=== PATIENT | male | born 1945 | race Caucasian/White ===

== ENCOUNTER 2021-04-21 13:50 | Observation (INO) ==
[~2021-04-21 13:50] MED LIST: Buffered Lidocaine 1% SYRIN 1 ml INTRADERM ONE; Famotidine IV 10 MG/ML 2 ml VIAL (20 mg) IV ONE; Lactated Ringers 1000 ml BAG 1,000 ML IV SCH
[2021-04-21] MEDS ORDERED: Bupivacaine 0.5% SDV PF 30ML VIAL ONE (14:14)
[2021-04-21] MEDS ORDERED: Lidocaine 1% w EPI 1:200,000 SDV 30 ML VIAL ONE (14:14)
[2021-04-21] MEDS ORDERED: ceFAZolin VIAL VIAL ONE ×2 (14:16→20:13)
[2021-04-21] MEDS ORDERED: Famotidine IV 10 MG/ML 2 ml VIAL (20 mg) ONE (14:27)
[2021-04-21] MEDS ORDERED: ceFAZolin 2 GM in NS PREMIX 2 GM/100 ML BAG IVPB ONE (14:27)
[2021-04-21] MEDS ORDERED: Midazolam 2 mg/2 ml VIAL 1 mg/ml 2 ml VIAL (2 mg) ONE (15:31)
[2021-04-21] MEDS ORDERED: Dexmedetomidine 200 mcg/2 ml 2 ml VIAL (200 mcg) ONE (15:31)
[2021-04-21] MEDS ORDERED: ROPIVACAINE 5 MG/ML 30 ML BTL (0.5%) ONE (15:31)
[2021-04-21] MEDS ORDERED: Lidocaine 2% PF 5 ML VIAL ONE ×2 (15:31→16:08)
[2021-04-21] MEDS ORDERED: Propofol 10 MG/ML 20 ML BTL ONE (16:08)
[2021-04-21] MEDS ORDERED: Succinylcholine 200 mg VIAL 20 mg/ml 10 ml VIAL (200 mg) ONE (16:08)
[2021-04-21] MEDS ORDERED: fentaNYL 100 mcg/2 ml 50 MCG/ML VIAL ONE ×3 (16:09→18:17)
[2021-04-21] MEDS ORDERED: Bupivacaine 0.25% EPI 200,000 30 ML SDV ONE (16:14)
[2021-04-21] MEDS ORDERED: Bupivacaine 0.25% SDV PF 10 ML VIAL INJ ONE (16:14)
[2021-04-21] MEDS ORDERED: Rocuronium 50 mg VIAL 10 mg/ml 5 ml VIAL (50 mg) ONE ×4 (16:14→21:18)
[2021-04-21] MEDS ORDERED: EPHEDrine (Pressors) 50 MG/ML VIAL ONE ×2 (16:49→19:24)
[2021-04-21] MEDS ORDERED: Dexamethasone IV 4 MG/ML VIAL 1 ml VIAL ONE (16:49)
[2021-04-21] MEDS ORDERED: Acetaminophen IV 1 GM/100ML 100 ML IV ONE (22:01)
[2021-04-21] MEDS ORDERED: Ondansetron 4 mg VIAL 2 MG/ML 2 ml VIAL IV PRN (22:41)
[2021-04-21] MEDS ORDERED: diPHENhydraMINE 25 mg TAB PO PRN (22:41)
[2021-04-21] MEDS ORDERED: Magnesium Hydroxide LIQ 30 ML UDC PO PRN (22:41)
[2021-04-21] MEDS ORDERED: diPHENhydraMINE IV 50 MG/ML 1 ml VIAL (BENADRYL) IV PRN (22:41)
[2021-04-21] MEDS ORDERED: Ondansetron ODT 4 mg TAB 4 MG TAB PO PRN (22:41)
[2021-04-21] MEDS ORDERED: Lactulose 30 ml UDC PO PRN (22:41)
[2021-04-21] MEDS ORDERED: Naloxone 0.4 mg VIAL 0.4 mg/ml 1 ml VIAL IV PRN (22:46)
[2021-04-21] MEDS ORDERED: fentaNYL 100 mcg/2 ml 50 MCG/ML VIAL IV PRN (22:46)
[2021-04-21] MEDS ORDERED: DiMENhydriNATE IV 50 mg/ml 1 ml VIAL IV PUSH PRN (22:46)
[2021-04-21] MEDS ORDERED: Lactated Ringers 1000 ml BAG 1,000 ML IV SCH (23:00)
[2021-04-22] MEDS: ceFAZolin 1 GM ADVAN 1 GM in NS 0.9% 50 ML 50 ML IVPB SCH ×3 (01:50→16:17)
[2021-04-22 05:17] LABS: Hematocrit 30 % (42-52); Hemoglobin 10.3 g/dL (14.0-18.0); Mean Platelet Volume 7.9 fL (7.4-10.4); Platelet Count 266 10^3/uL (150-450)
[2021-04-22 05:34] LABS: Calcium 8.9 mg/dL (8.6-10.3); Potassium 4.4 mmol/L (3.5-5.0); eGFR CKD-EPI 80.4 (>60)
[2021-04-22] MEDS ORDERED: Magnesium Hydroxide LIQ 30 ML UDC PO SCH (09:00)
[2021-04-22] MEDS ORDERED: Vitamin THERAPEUTIC TAB PO SCH (09:00)
[2021-04-22] MEDS ORDERED: Enoxaparin 40 MG/0.4 ML SYR SUBCUT SCH (12:00)
[2021-04-22 16:23] VITALS: BP 131/70
[2021-04-22] MEDS ORDERED: Aspirin EC 81 mg TAB.EC (enteric coated) PO SCH (21:00)
== END 2021-04-22 16:40 | disposition home or self-care (01) ==
LOC: OR 13:50 → SSU 13:50
PROVIDERS: ADMIT Orthopaedic Surgery Sports Medicine; ATTEND Orthopaedic Surgery Sports Medicine

== ENCOUNTER 2023-11-04 04:40 | Inpatient (IN) ==
[2023-11-04 05:19] LABS: Hematocrit 36.8 % (38-53); Hemoglobin 12.3 g/dL (13.2-16.3); Mean Corpuscular Hemoglobin 28.5 pg (27-33); Mean Corpuscular Hgb Conc 33.5 g/dL (31-36); Mean Platelet Volume 8.8 fL (7.5-11.2); Platelet Count 174 10^3/uL (150-450); Red Blood Count 4.33 10^6/uL (4.06-5.63); Red Cell Distribution Width 14.8 % (12-17); White Blood Count 9.5 10^3/uL (3.6-10.2)
[2023-11-04 05:32] LABS: Glucose Confirmatory 463 mg/dL (70-100)
[2023-11-04 05:50] LABS: Venous Bicarbonate HCO3 15.6 mmol/L (24-28)
[2023-11-04] MEDS ORDERED: Dextrose 50% Syringe 50 ml 25 GM/50 ML SYRINGE IV PUSH PRN ×3 (05:50→19:14)
[2023-11-04 05:54] LABS: Urine Appearance Turbid; Urine Bacteria Absent /HPF (Absent); Urine Bilirubin Negative (Negative); Urine Blood 3+ (Negative); Urine Glucose 4+ (>=1000 mg/dL) (Negative); Urine Ketones 1+ (Negative); Urine Nitrite Negative (Negative); Urine Protein 1+ (>=30 mg/dL) (Negative); Urine Red Blood Cell 3+(>10/hpf) /HPF (0-Trace); Urine Squamous Epithelial Cell Present /HPF (Absent); Urine Urobilinogen Negative (Negative); Urine White Blood Cell Trace(0-5/hpf) /HPF (0-Trace); Urine pH 5.5 (5.0-8.0)
[2023-11-04] MEDS: NS 0.9% 1000 ml BAG 1,000 ML IV ONE (05:54)
[2023-11-04 06:08] LABS: ALT 44 U/L (7-52); Albumin/Globulin Ratio 1.2 (1-3); Alkaline Phosphatase 50 U/L (35-149); Anion Gap 12 mmol/L (2-16); Blood Urea Nitrogen 69 mg/dL (6-24); C Reactive Protein 368.66 mg/L (<8.01); CO2 Carbon Dioxide 17 mmol/L (22-32); Calcium 7.2 mg/dL (8.6-10.3); Chloride 110 mmol/L (101-111); Creatinine, Serum 2.35 mg/dL (0.67-1.17); Globulin 2.6 g/dL (2-4); Glucose 435 mg/dL (70-100); Sodium 139 mmol/L (135-145); Total Bilirubin 0.8 mg/dL (0.2-1.0); Total Protein 5.6 g/dL (6.4-8.9)
[2023-11-04] MEDS ORDERED: Vancomycin 1,000 MG in NS 0.9% 250 ml 250 ML IVPB ONE (06:12)
[2023-11-04] MEDS: Insulin Infusion 100unit/100mL 100 UNIT/100 ML BAG IV SCH ×2 (06:13→13:20)
[2023-11-04] MEDS: Piperacillin/Tazobac 3.375 BAG 3.375 GM/100 ML BAG IV ONE (06:37)
[2023-11-04 06:38] LABS: Glucose Confirmatory 464 mg/dL (70-100)
[2023-11-04 06:52] LABS: ABS Lymphocytes 0.2 10^3/uL (1.0-4.8); ABS Neutrophils 8.2 10^3/uL (1.5-7.6); ABS Nucleated RBC 0.02 10^3/ul; Eosinophil % 0.1 %; Lymphocyte % 2.2 %; Nucleated Red Blood Cells % 0.2 %/100WBC (0.0-0.8); RBC Morphology Normal (Normal)
[2023-11-04 07:43] LABS: Urine Color Yellow
[2023-11-04 08:23] LABS: Erythrocyte Sed Rate 59 mm/Hr (0-19)
[2023-11-04] MEDS: Vancomycin 1,500 MG in NS 0.9% 250 ml 250 ML IVPB ONE (09:17)
[2023-11-04] MEDS: NORMOSOL-R pH 7.4 1000 mL BAG 1,000 ML IV SCH (09:21)
[2023-11-04 09:43] LABS: Magnesium 2.4 mg/dL (1.9-2.7)
[2023-11-04] MEDS ORDERED: Bupivacaine 0.5% SDV PF 30ML VIAL ONE (10:27)
[2023-11-04] MEDS ORDERED: Propofol 10 MG/ML 20 ML BTL ONE ×3 (10:38→13:46)
[2023-11-04] MEDS ORDERED: Lidocaine 2% PF 5 ML VIAL ONE ×2 (10:38→13:46)
[2023-11-04] MEDS ORDERED: fentaNYL 100 mcg/2 ml 50 MCG/ML VIAL IV PRN (10:53)
[2023-11-04] MEDS ORDERED: Naloxone 0.4 mg VIAL 0.4 mg/ml 1 ml VIAL IV PRN (10:53)
[2023-11-04] MEDS ORDERED: Metoclopramide 5 MG/ML VIAL (10 mg) IV PRN (10:53)
[2023-11-04] MEDS ORDERED: Ondansetron 4 mg VIAL 2 MG/ML 2 ml VIAL IV PRN ×2 (10:53→13:06)
[2023-11-04] MEDS ORDERED: Insulin Infusion 100unit/100mL 100 UNIT/100 ML BAG IV SCH (11:00)
[2023-11-04] MEDS ORDERED: NS 0.45% 1000 ml BAG 1,000 ML IV SCH (11:00)
[2023-11-04] MEDS ORDERED: Ondansetron 4 mg VIAL 2 MG/ML 2 ml VIAL ONE (11:54)
[2023-11-04] MEDS ORDERED: Phenylephrine 40 mcg/mL 10mL (400mcg) SYRINGE ONE (11:56)
[2023-11-04] MEDS: metroNIDAZOLE IV 500 MG/100ML 500 MG/100 ML BAG IVPB ONE (12:26)
[2023-11-04] MEDS: Buffered Lidocaine 1% SYRIN 1 ml INTRADERM ONE (12:27)
[2023-11-04] MEDS: Lactated Ringers 1000 ml BAG 1,000 ML IV SCH (12:27)
[2023-11-04] MEDS: Acetaminophen IV 1 GM/100ML 1,000 MG/100 ML BAG IV ONE (12:27)
[2023-11-04] MEDS ORDERED: Morphine 2 MG/ML SYRINGE IV PRN (13:06)
[2023-11-04] MEDS ORDERED: Magnesium Hydroxide LIQ 30 ML UDC PO PRN (13:06)
[2023-11-04] MEDS ORDERED: Ondansetron ODT 4 mg TAB 4 MG TAB PO PRN (13:06)
[2023-11-04 13:17] LABS: Albumin 2.9 g/dL (3.2-5.2); Albumin/Globulin Ratio 0.9 (1-3); Calcium 7.6 mg/dL (8.6-10.3); Creatinine, Serum 2.59 mg/dL (0.67-1.17); Globulin 3.1 g/dL (2-4); Potassium 3.7 mmol/L (3.5-5.0); Total Bilirubin 0.7 mg/dL (0.2-1.0); eGFR CKD-EPI 24.9 (>60)
[2023-11-04] MEDS ORDERED: fentaNYL 100 mcg/2 ml 50 MCG/ML VIAL ONE (13:46)
[2023-11-04] MEDS ORDERED: Vancomycin per Pharmacy 1 EA NOTE FOLLOW UP SCH (14:00)
[2023-11-04] MEDS ORDERED: Zosyn per Pharmacy NOTE FOLLOW UP SCH (20:00)
[2023-11-04] MEDS: Clindamycin 600 MG/D5W BAG 600 MG/50 ML BAG IV SCH (21:45)
[2023-11-04] MEDS: ZOSYN 3.375 GM x ONE DOSE over 30 miuntes IV (21:52)
[2023-11-04] MEDS: Magnesium Hydroxide LIQ 30 ML UDC PO SCH (23:00)
[2023-11-05] MEDS: ZOSYN 3.375 GM Q12H per EXTENDED INFUSION IV SCH ×2 (03:56→04:00)
[2023-11-05 06:38] LABS: ABS Basophils 0.1 10^3/uL (0.0-0.1); ABS Lymphocytes 0.3 10^3/uL (1.0-4.8); ABS Monocytes 0.9 10^3/uL (0.0-1.1); ABS Neutrophils 8.5 10^3/uL (1.5-7.6); ABS Nucleated RBC 0.01 10^3/ul; Eosinophil % 0.4 %; Hematocrit 35.4 % (38-53); Hemoglobin 11.9 g/dL (13.2-16.3); Lymphocyte % 3.5 %; Mean Corpuscular Hemoglobin 28.4 pg (27-33); Mean Corpuscular Hgb Conc 33.6 g/dL (31-36); Mean Corpuscular Volume 84.5 fL (80-97); Mean Platelet Volume 8.9 fL (7.5-11.2); Nucleated Red Blood Cells % 0.1 %/100WBC (0.0-0.8); Platelet Count 156 10^3/uL (150-450); Red Blood Count 4.18 10^6/uL (4.06-5.63); Red Cell Distribution Width 14.8 % (12-17); White Blood Count 9.8 10^3/uL (3.6-10.2)
[2023-11-05 07:43] LABS: Calcium 8.4 mg/dL (8.6-10.3); Creatinine, Serum 2.36 mg/dL (0.67-1.17); Magnesium 2.5 mg/dL (1.9-2.7); eGFR CKD-EPI 27.8 (>60)
[2023-11-05] MEDS: Vancomycin Random Level NOTE FOLLOW UP ONE (07:49)
[2023-11-05] MEDS: Vitamin THERAPEUTIC TAB PO SCH (07:50)
[2023-11-05] MEDS ORDERED: Sulfur Hexaflouride MICROSPHR 25 MG VIAL IV PRN (09:38)
[2023-11-05] MEDS: Lactated Ringers 1000 ml BAG 1,000 ML IV SCH (11:26)
[2023-11-05] MEDS: Pantoprazole VIAL 40 MG VIAL IV SCH (11:29)
[2023-11-05] MEDS: Vancomycin 2,000 MG in NS 0.9% 500 ml BAG 500 ML IVPB ONE (13:45)
[2023-11-06 05:03] LABS: ABS Lymphocytes 0.4 10^3/uL (1.0-4.8); ABS Monocytes 0.5 10^3/uL (0.0-1.1); ABS Neutrophils 8.2 10^3/uL (1.5-7.6); Hematocrit 34.8 % (38-53); Lymphocyte % 4.6 %; Mean Corpuscular Hemoglobin 28.8 pg (27-33); Mean Corpuscular Hgb Conc 34.6 g/dL (31-36); Mean Corpuscular Volume 83.3 fL (80-97); Mean Platelet Volume 8.7 fL (7.5-11.2); Platelet Count 208 10^3/uL (150-450); Red Blood Count 4.18 10^6/uL (4.06-5.63); Red Cell Distribution Width 14.8 % (12-17); White Blood Count 9.1 10^3/uL (3.6-10.2)
[2023-11-06 05:54] LABS: Creatinine, Serum 2.01 mg/dL (0.67-1.17); Magnesium 2.5 mg/dL (1.9-2.7); Vancomycin Random 15.5 mcg/mL; eGFR CKD-EPI 33.7 (>60)
[2023-11-06] MEDS: Vancomycin Random Level NOTE FOLLOW UP ONE (08:13)
[2023-11-06] MEDS: Morphine 2 MG/ML SYRINGE IV PRN (10:18)
[2023-11-06] MEDS: Sulfur Hexaflouride MICROSPHR 25 MG VIAL IV PRN (12:38)
[2023-11-06] MEDS: Insulin GLARGINE 100 un/ml 10 ml VIAL SUBCUT SCH (12:54)
[2023-11-06] MEDS: cefTRIAXone 2 gm/50 mL D5W 2 GM/50 ML BAG IV SCH (12:54)
[2023-11-06 17:04] LABS: Calcium 9.1 mg/dL (8.6-10.3); Creatinine, Serum 1.9 mg/dL (0.67-1.17); Potassium 3.8 mmol/L (3.5-5.0); eGFR CKD-EPI 36.1 (>60)
[2023-11-06] MEDS: D5W 1000 ml BAG 1,000 ML IV SCH (18:11)
[2023-11-07] MEDS: D5W 1000 ml BAG 1,000 ML IV SCH ×2 (01:55→15:03)
[2023-11-08 06:32] LABS: Calcium 8.3 mg/dL (8.6-10.3); Creatinine, Serum 1.71 mg/dL (0.67-1.17); Potassium 3.8 mmol/L (3.5-5.0)
[2023-11-08] MEDS: D5W 1000 ml BAG 1,000 ML IV SCH (08:55)
[2023-11-08] MEDS ORDERED: Insulin GLARGINE 100 un/ml 10 ml VIAL SUBCUT SCH (09:00)
[2023-11-08] MEDS: Insulin GLARGINE 100 un/ml 10 ml VIAL SUBCUT SCH (10:34)
[2023-11-08] MEDS: Lidocaine PATCH 5% PATCH TRANSDERM SCH (11:53)
[2023-11-09] MEDS: Lactated Ringers 1000 ml BAG 500 ML IV ONE (00:22)
[2023-11-09 05:53] LABS: ABS Eosinophils 0.2 10^3/uL (0.0-0.5); ABS Lymphocytes 0.8 10^3/uL (1.0-4.8); ABS Monocytes 0.6 10^3/uL (0.0-1.1); ABS Neutrophils 8.9 10^3/uL (1.5-7.6); ABS Nucleated RBC 0.01 10^3/ul; Eosinophil % 2.3 %; Hematocrit 33.9 % (38-53); Hemoglobin 11.4 g/dL (13.2-16.3); Lymphocyte % 7.4 %; Mean Corpuscular Hemoglobin 28.4 pg (27-33); Mean Corpuscular Hgb Conc 33.7 g/dL (31-36); Mean Corpuscular Volume 84.4 fL (80-97); Mean Platelet Volume 8.8 fL (7.5-11.2); Platelet Count 252 10^3/uL (150-450); Red Blood Count 4.02 10^6/uL (4.06-5.63); Red Cell Distribution Width 15.2 % (12-17); White Blood Count 10.5 10^3/uL (3.6-10.2)
[2023-11-09 06:23] LABS: Calcium 7.4 mg/dL (8.6-10.3); Creatinine, Serum 1.65 mg/dL (0.67-1.17); eGFR CKD-EPI 42.8 (>60)
[2023-11-09 09:38] LABS: Erythrocyte Sed Rate 78 mm/Hr (0-19)
[2023-11-09] MEDS: Lactulose 30 ml UDC PO PRN (09:52)
[2023-11-09] MEDS: Insulin GLARGINE 100 un/ml 10 ml VIAL SUBCUT SCH (09:59)
[2023-11-09] MEDS: Furosemide 40 mg/4 ml IV VIAL IV ONE (15:13)
[2023-11-09] MEDS: D5W 1000 ml BAG 1,000 ML IV ONE (22:42)
[2023-11-10 06:37] LABS: Calcium 7.5 mg/dL (8.6-10.3); Creatinine, Serum 1.8 mg/dL (0.67-1.17); Magnesium 2.1 mg/dL (1.9-2.7); Potassium 3.9 mmol/L (3.5-5.0); eGFR CKD-EPI 38.5 (>60)
[2023-11-10] MEDS ORDERED: D5W 1000 ml BAG 1,000 ML IV SCH (08:00)
[2023-11-11 06:24] LABS: ABS Eosinophils 0.2 10^3/uL (0.0-0.5); ABS Lymphocytes 0.7 10^3/uL (1.0-4.8); ABS Monocytes 0.6 10^3/uL (0.0-1.1); ABS Nucleated RBC 0.01 10^3/ul; Hematocrit 36.6 % (38-53); Hemoglobin 11.9 g/dL (13.2-16.3); Lymphocyte % 6.8 %; Mean Corpuscular Hemoglobin 28.2 pg (27-33); Mean Corpuscular Hgb Conc 32.4 g/dL (31-36); Mean Corpuscular Volume 87.2 fL (80-97); Mean Platelet Volume 8.9 fL (7.5-11.2); Nucleated Red Blood Cells % 0.1 %/100WBC (0.0-0.8); Platelet Count 363 10^3/uL (150-450); Red Cell Distribution Width 15.4 % (12-17); White Blood Count 10.6 10^3/uL (3.6-10.2)
[2023-11-11 06:53] LABS: Creatinine, Serum 1.62 mg/dL (0.67-1.17); Magnesium 2.2 mg/dL (1.9-2.7); Potassium 4.2 mmol/L (3.5-5.0); eGFR CKD-EPI 43.7 (>60)
[2023-11-11] MEDS: Insulin GLARGINE 100 un/ml 10 ml VIAL SUBCUT SCH (10:27)
[2023-11-11 15:43] LABS: Folate 12.82 ng/mL (5.90-24.80)
[2023-11-11 16:17] LABS: TSH Ultra Thyroid Stim Horm 3.69 mcIU/mL (0.34-5.60)
[2023-11-11] MEDS: D5W 1000 ml BAG 1,000 ML IV SCH (18:37)
[2023-11-11 20:39] LABS: Osmolality Serum 327 mOsm/kg (275-295)
[2023-11-11] MEDS ORDERED: LORazepam 2 MG/ML 1 mL Syringe IV PRN (21:03)
[2023-11-11] MEDS ORDERED: LORazepam 2 mg VIAL 1 ml IV PUSH PRN (21:05)
[2023-11-11] MEDS ORDERED: Lorazepam PYXIS KEY PRN (21:10)
[2023-11-11 21:12] LABS: Urine Osmo 599 mOsm/kg (150-1150)
[2023-11-12 12:14] LABS: ABS Eosinophils 0.1 10^3/uL (0.0-0.5); ABS Lymphocytes 0.6 10^3/uL (1.0-4.8); ABS Monocytes 0.5 10^3/uL (0.0-1.1); ABS Neutrophils 8.3 10^3/uL (1.5-7.6); ABS Nucleated RBC 0.01 10^3/ul; Eosinophil % 1.5 %; Hematocrit 33.6 % (38-53); Hemoglobin 11.1 g/dL (13.2-16.3); Lymphocyte % 6.2 %; Mean Corpuscular Hemoglobin 28.2 pg (27-33); Mean Corpuscular Hgb Conc 33.1 g/dL (31-36); Mean Corpuscular Volume 85.3 fL (80-97); Nucleated Red Blood Cells % 0.1 %/100WBC (0.0-0.8); Platelet Count 422 10^3/uL (150-450); Red Blood Count 3.94 10^6/uL (4.06-5.63); Red Cell Distribution Width 14.9 % (12-17); White Blood Count 9.6 10^3/uL (3.6-10.2)
[2023-11-12 12:35] LABS: Calcium 7.3 mg/dL (8.6-10.3); Creatinine, Serum 1.49 mg/dL (0.67-1.17); Potassium 3.9 mmol/L (3.5-5.0); eGFR CKD-EPI 48.3 (>60)
[2023-11-12] MEDS: LORazepam 2 mg VIAL 1 ml IV PUSH PRN (20:08)
[2023-11-12] MEDS: D5W 1000 ml BAG 1,000 ML IV SCH (23:06)
[2023-11-13 06:00] LABS: ABS Basophils 0.1 10^3/uL (0.0-0.1); ABS Eosinophils 0.2 10^3/uL (0.0-0.5); ABS Lymphocytes 0.8 10^3/uL (1.0-4.8); ABS Monocytes 0.5 10^3/uL (0.0-1.1); ABS Neutrophils 8.2 10^3/uL (1.5-7.6); Eosinophil % 1.6 %; Hematocrit 29.2 % (38-53); Hemoglobin 9.7 g/dL (13.2-16.3); Lymphocyte % 8.2 %; Mean Corpuscular Hemoglobin 28.1 pg (27-33); Mean Corpuscular Hgb Conc 33.2 g/dL (31-36); Mean Corpuscular Volume 84.4 fL (80-97); Mean Platelet Volume 8.5 fL (7.5-11.2); Platelet Count 399 10^3/uL (150-450); Red Blood Count 3.46 10^6/uL (4.06-5.63); Red Cell Distribution Width 14.6 % (12-17); White Blood Count 9.8 10^3/uL (3.6-10.2)
[2023-11-13 06:12] LABS: Calcium 7.7 mg/dL (8.6-10.3); Creatinine, Serum 1.45 mg/dL (0.67-1.17); Magnesium 1.9 mg/dL (1.9-2.7); Potassium 3.3 mmol/L (3.5-5.0); eGFR CKD-EPI 49.9 (>60)
[2023-11-13] MEDS ORDERED: Lorazepam PYXIS KEY PRN (10:07)
[2023-11-13] MEDS: Insulin GLARGINE 100 un/ml 10 ml VIAL SUBCUT SCH (10:38)
[2023-11-13] MEDS: Potassium Chloride LIQUID 20 MEQ/15 ML LIQUID PO SCH (10:38)
[2023-11-13] MEDS: LORazepam 2 mg VIAL 1 ml IV PUSH ONE (10:39)
[2023-11-13] MEDS: Iodixanol (CONTRAST) 320 MG/ML 100 ML SDV IV ONE (11:58)
[2023-11-13] MEDS: D5W 1000 ml BAG 1,000 ML IV SCH (19:50)
[2023-11-14 06:24] LABS: ABS Basophils 0.1 10^3/uL (0.0-0.1); ABS Eosinophils 0.2 10^3/uL (0.0-0.5); ABS Monocytes 0.6 10^3/uL (0.0-1.1); ABS Neutrophils 10.3 10^3/uL (1.5-7.6); Eosinophil % 1.5 %; Hemoglobin 10.2 g/dL (13.2-16.3); Lymphocyte % 8.4 %; Mean Corpuscular Hemoglobin 27.3 pg (27-33); Mean Corpuscular Hgb Conc 32.8 g/dL (31-36); Mean Corpuscular Volume 83.3 fL (80-97); Mean Platelet Volume 8.7 fL (7.5-11.2); Platelet Count 492 10^3/uL (150-450); Red Blood Count 3.72 10^6/uL (4.06-5.63); Red Cell Distribution Width 14.5 % (12-17); White Blood Count 12.3 10^3/uL (3.6-10.2)
[2023-11-14 06:25] LABS: Calcium 7.9 mg/dL (8.6-10.3); Creatinine, Serum 1.31 mg/dL (0.67-1.17); Magnesium 1.9 mg/dL (1.9-2.7); Potassium 3.3 mmol/L (3.5-5.0); eGFR CKD-EPI 56.4 (>60)
[2023-11-14] MEDS: KCL 20 MEQ/100 ML IVPREMIX 20 MEQ/100 ML BAG IV SCH (10:28)
[2023-11-14] MEDS: Insulin GLARGINE 100 un/ml 10 ml VIAL SUBCUT SCH (10:29)
[2023-11-14] MEDS: KCL 20 MEQ/100 ML IVPREMIX 20 MEQ/100 ML BAG ONE (19:31)
[2023-11-15 05:08] LABS: ABS Basophils 0.1 10^3/uL (0.0-0.1); ABS Eosinophils 0.2 10^3/uL (0.0-0.5); ABS Lymphocytes 0.7 10^3/uL (1.0-4.8); ABS Monocytes 0.6 10^3/uL (0.0-1.1); ABS Neutrophils 9.4 10^3/uL (1.5-7.6); Hematocrit 28.9 % (38-53); Hemoglobin 9.8 g/dL (13.2-16.3); Lymphocyte % 6.5 %; Mean Corpuscular Hemoglobin 28.1 pg (27-33); Mean Corpuscular Volume 82.6 fL (80-97); Mean Platelet Volume 8.3 fL (7.5-11.2); Platelet Count 459 10^3/uL (150-450); Red Cell Distribution Width 14.6 % (12-17)
[2023-11-15 05:32] LABS: Calcium 8.4 mg/dL (8.6-10.3); Creatinine, Serum 1.29 mg/dL (0.67-1.17); Magnesium 1.9 mg/dL (1.9-2.7); Potassium 3.7 mmol/L (3.5-5.0); eGFR CKD-EPI 57.5 (>60)
[2023-11-16 05:58] LABS: Albumin 2.1 g/dL (3.2-5.2); Albumin/Globulin Ratio 0.6 (1-3); Calcium 8.2 mg/dL (8.6-10.3); Creatinine, Serum 1.3 mg/dL (0.67-1.17); Globulin 3.6 g/dL (2-4); Potassium 4.4 mmol/L (3.5-5.0); Total Bilirubin 0.5 mg/dL (0.2-1.0); Total Protein 5.7 g/dL (6.4-8.9); eGFR CKD-EPI 56.9 (>60)
[2023-11-16] MEDS: D5NS 0.9% 1000 ml BAG 1,000 ML IV SCH (12:13)
[2023-11-16 16:14] LABS: ABS Basophils 0.1 10^3/uL (0.0-0.1); ABS Eosinophils 0.2 10^3/uL (0.0-0.5); ABS Lymphocytes 0.8 10^3/uL (1.0-4.8); ABS Monocytes 0.7 10^3/uL (0.0-1.1); ABS Neutrophils 9.2 10^3/uL (1.5-7.6); Eosinophil % 1.6 %; Hematocrit 30.5 % (38-53); Hemoglobin 10.3 g/dL (13.2-16.3); Lymphocyte % 7.4 %; Mean Corpuscular Hemoglobin 28.1 pg (27-33); Mean Corpuscular Hgb Conc 33.6 g/dL (31-36); Mean Corpuscular Volume 83.5 fL (80-97); Mean Platelet Volume 8.4 fL (7.5-11.2); Platelet Count 507 10^3/uL (150-450); Red Blood Count 3.66 10^6/uL (4.06-5.63); Red Cell Distribution Width 14.4 % (12-17)
[2023-11-17 11:00] LABS: ABS Basophils 0.1 10^3/uL (0.0-0.1); ABS Eosinophils 0.2 10^3/uL (0.0-0.5); ABS Lymphocytes 0.8 10^3/uL (1.0-4.8); ABS Monocytes 0.5 10^3/uL (0.0-1.1); ABS Neutrophils 6.9 10^3/uL (1.5-7.6); ABS Nucleated RBC 0.01 10^3/ul; Eosinophil % 1.9 %; Hematocrit 30.8 % (38-53); Hemoglobin 10.1 g/dL (13.2-16.3); Lymphocyte % 8.9 %; Mean Corpuscular Hemoglobin 27.4 pg (27-33); Mean Corpuscular Hgb Conc 32.8 g/dL (31-36); Mean Corpuscular Volume 83.6 fL (80-97); Mean Platelet Volume 8.3 fL (7.5-11.2); Nucleated Red Blood Cells % 0.1 %/100WBC (0.0-0.8); Platelet Count 516 10^3/uL (150-450); Red Blood Count 3.69 10^6/uL (4.06-5.63); Red Cell Distribution Width 14.3 % (12-17); White Blood Count 8.4 10^3/uL (3.6-10.2)
[2023-11-17 11:18] LABS: Albumin 2.2 g/dL (3.2-5.2); Albumin/Globulin Ratio 0.6 (1-3); Calcium 8.2 mg/dL (8.6-10.3); Creatinine, Serum 1.22 mg/dL (0.67-1.17); Globulin 3.7 g/dL (2-4); Total Bilirubin 0.4 mg/dL (0.2-1.0); Total Protein 5.9 g/dL (6.4-8.9); eGFR CKD-EPI 61.4 (>60)
[2023-11-17] MEDS: D5W 1000 ml BAG 1,000 ML IV SCH (12:02)
[2023-11-19 06:32] LABS: ABS Basophils 0.1 10^3/uL (0.0-0.1); ABS Eosinophils 0.1 10^3/uL (0.0-0.5); ABS Lymphocytes 0.7 10^3/uL (1.0-4.8); ABS Monocytes 0.6 10^3/uL (0.0-1.1); ABS Neutrophils 5.9 10^3/uL (1.5-7.6); Eosinophil % 1.7 %; Hematocrit 28.9 % (38-53); Hemoglobin 9.7 g/dL (13.2-16.3); Lymphocyte % 9.3 %; Mean Corpuscular Hemoglobin 28.2 pg (27-33); Mean Corpuscular Hgb Conc 33.5 g/dL (31-36); Mean Corpuscular Volume 84.3 fL (80-97); Mean Platelet Volume 8.2 fL (7.5-11.2); Platelet Count 383 10^3/uL (150-450); Red Blood Count 3.43 10^6/uL (4.06-5.63); Red Cell Distribution Width 14.8 % (12-17); White Blood Count 7.4 10^3/uL (3.6-10.2)
[2023-11-19 07:07] LABS: Calcium 8.2 mg/dL (8.6-10.3); Creatinine, Serum 1.24 mg/dL (0.67-1.17); Potassium 4.1 mmol/L (3.5-5.0); eGFR CKD-EPI 60.3 (>60)
[2023-11-20] MEDS: Insulin GLARGINE 100 un/ml 10 ml VIAL SUBCUT SCH (07:54)
[2023-11-21 07:05] LABS: ABS Basophils 0.1 10^3/uL (0.0-0.1); ABS Eosinophils 0.2 10^3/uL (0.0-0.5); ABS Lymphocytes 0.9 10^3/uL (1.0-4.8); ABS Monocytes 0.4 10^3/uL (0.0-1.1); ABS Neutrophils 4.7 10^3/uL (1.5-7.6); Eosinophil % 3.1 %; Hematocrit 24.2 % (38-53); Hemoglobin 8.5 g/dL (13.2-16.3); Lymphocyte % 13.7 %; Mean Corpuscular Hemoglobin 28.8 pg (27-33); Mean Corpuscular Volume 82.1 fL (80-97); Platelet Count 311 10^3/uL (150-450); Red Blood Count 2.95 10^6/uL (4.06-5.63); Red Cell Distribution Width 14.6 % (12-17); White Blood Count 6.3 10^3/uL (3.6-10.2)
[2023-11-21 07:23] LABS: Albumin 2.1 g/dL (3.2-5.2); Albumin/Globulin Ratio 0.6 (1-3); C Reactive Protein 146.58 mg/L (<8.01); Calcium 7.9 mg/dL (8.6-10.3); Creatinine, Serum 1.11 mg/dL (0.67-1.17); Globulin 3.5 g/dL (2-4); Potassium 3.7 mmol/L (3.5-5.0); Total Bilirubin 0.4 mg/dL (0.2-1.0); Total Protein 5.6 g/dL (6.4-8.9); eGFR CKD-EPI 68.8 (>60)
[2023-11-21] MEDS ORDERED: Insulin GLARGINE 100 un/ml 10 ml VIAL SUBCUT SCH (09:00)
[2023-11-21] MEDS: Insulin GLARGINE 100 un/ml 10 ml VIAL SUBCUT SCH (09:19)
[2023-11-21 09:47] VITALS: BP 128/71
== END 2023-11-21 11:23 | DRG 616 ==
LOC: ED 04:40 → EDHOLD 09:32 → SUATTDRO 09:32 → ICU 10:06 → SSU 11-06 16:08
PROVIDERS: ADMIT Student in an Organized Health Care Education/Training Program; ATTEND Internal Medicine